=== PATIENT | female | born 1995 ===

== ENCOUNTER 2018-05-29 01:02 | Inpatient (IN) | payer OTHER ==
--- NOTE | 2018-05-29 01:18 | ED PDOC ---
Arrival/HPI - General Chief Complaint: Medical Clearance Time Seen by Provider: 05/29/18 01:10 Historian: Patient, EMS - History of Present Illness Narrative History of Present Illness (Text): 05/29/18 01:15 22 year old female, whose past medical history includes depression, presents to the emergency department transferred from [facility] for psychiatric admission. Patient informs of some suicidal ideation. Patient currently states she feels fine. Patient denies any somatic complaints. Patient denies any fevers, chills, headache, dizziness, chest pain, shortness of breath, cough, diaphoresis, abdominal pain, nausea, vomiting, diarrhea, back pain, neck pain, or any other complaint. Time/Duration: Prior to Arrival Symptom Onset: Gradual Symptom Course: Unchanged Activities at Onset: Light Past Medical History - Provider Review Nursing Documentation Reviewed: Yes - Infectious Disease Hx of Infectious Diseases: None - Cardiac Hx Cardiac Disorders: No - Pulmonary Hx Respiratory Disorders: No - Neurological Hx Neurological Disorder: No - HEENT Hx HEENT Disorder: No - Renal Hx Renal Disorder: No - Endocrine/Metabolic Hx Endocrine Disorders: No - Hematological/Oncological Hx Blood Disorders: No - Integumentary Hx Dermatological Disorder: No - Musculoskeletal/Rheumatological Hx Musculoskeletal Disorders: No - Gastrointestinal Hx Gastrointestinal Disorders: No - Genitourinary/Gynecological Hx Genitourinary Disorders: No - Psychiatric Hx Psychophysiologic Disorder: Yes Hx Depression: Yes Hx Substance Use: No - Surgical History Hx Gastric Bypass Surgery: Yes (gastric sleeve) - Anesthesia Hx Anesthesia: Yes Hx Anesthesia Reactions: No Hx Malignant Hyperthermia: No Family/Social History - Physician Review Nursing Documentation Reviewed: Yes Family/Social History: No Known Family HX Smoking Status: Never Smoked Hx Alcohol Use: Yes Frequency of alcohol use: Socially Hx Substance Use: No Allergies/Home Meds Allergies/Adverse Reactions: Allergies No Known Allergies Allergy (Verified 05/29/18 02:48) Home Medications: Home Meds Medication Instructions Recorded Confirmed No Known Home Med 05/29/18 05/29/18 Review of Systems - Physician Review All systems were reviewed & negative as marked: Yes - Review of Systems Constitutional: absent: Fevers, Night Sweats Respiratory: absent: SOB, Cough Cardiovascular: absent: Chest Pain Gastrointestinal: absent: Abdominal Pain, Diarrhea, Nausea, Vomiting Musculoskeletal: absent: Back Pain, Neck Pain Neurological: absent: Headache, Dizziness Endocrine: absent: Diaphoresis Psychiatric: Depression, Suicidal Ideation Physical Exam Vital Signs Reviewed: Yes Vital Signs Temp Pulse Resp BP Pulse Ox 05/29/18 01:08 98.0 F 69 18 129/70 98 Temperature: Afebrile Blood Pressure: Normal Pulse: Regular Respiratory Rate: Normal Appearance: Positive for: Well-Appearing, Non-Toxic, Comfortable Pain Distress: None Mental Status: Positive for: Alert and Oriented X 3 - Systems Exam Head: Present: Atraumatic, Normocephalic Pupils: Present: PERRL Extroacular Muscles: Present: EOMI Conjunctiva: Present: Normal Mouth: Present: Moist Mucous Membranes Neck: Present: Normal Range of Motion Respiratory/Chest: Present: Clear to Auscultation, Good Air Exchange. No: Respiratory Distress, Accessory Muscle Use Cardiovascular: Present: Regular Rate and Rhythm, Normal S1, S2. No: Murmurs Abdomen: No: Tenderness, Distention, Peritoneal Signs Back: Present: Normal Inspection Upper Extremity: Present: Normal Inspection. No: Cyanosis, Edema Lower Extremity: Present: Normal Inspection. No: Edema Neurological: Present: GCS=15, CN II-XII Intact, Speech Normal Skin: Present: Warm, Dry, Normal Color. No: Rashes Psychiatric: Present: Alert, Oriented x 3, Normal Insight, Normal Concentration, Depressed Mood, Suicidal Ideation Medical Decision Making ED Course and Treatment: 05/29/18 01:20 Impression: 22 year old female presents with suicidal ideation. Plan: -- Admission order -- Reassess and disposition Prior Visits: Notes and results from previous visits were reviewed. Progress Notes: - Scribe Statement The provider has reviewed the documentation as recorded by the Uvaldo Acosta Provider Scribe Attestation: All medical record entries made by the Kerriibkevin were at my direction and personally dictated by me. I have reviewed the chart and agree that the record accurately reflects my personal performance of the history, physical exam, m edical decision making, and the department course for this patient. I have also personally directed, reviewed, and agree with the discharge instructions and disposition. Disposition/Present on Arrival - Present on Arrival Any Indicators Present on Arrival: No History of DVT/PE: No History of Uncontrolled Diabetes: No Urinary Catheter: No History of Decub. Ulcer: No History Surgical Site Infection Following: None - Disposition Have Diagnosis and Disposition been Completed?: Yes Diagnosis: MDD (major depressive disorder) Disposition: HOSPITALIZED Disposition Time: 01:11 Patient Problems: Current Active Problems Problem Status Onset MARIANA (generalized anxiety disorder) Acute MDD (major depressive disorder) Acute Panic disorder Acute Condition: STABLE
[2018-05-29] MEDS ORDERED: Alum-Mag Hydrox-Simethicone Susp (30 mL) PO PRN (02:27)
[2018-05-29] MEDS ORDERED: Magnesium Hydroxide Susp 30 ml UD PO PRN (02:27)
--- NOTE | 2018-05-29 03:30 | PCM.BM ---
<Krista Rios - Last Filed: 05/29/18 03:27> Treatment Plan Problems - Problems identified on initial assessmt Sucidial Ideation Date Initiated: 05/29/18 Time Initiated: 03:28 Assessment reference: NA Status: Active Hopelessness/Helplessness Date Initiated: 05/29/18 Time Initiated: 03:28 Assessment reference: NA Status: Active Anxiety Date Initiated: 05/29/18 Time Initiated: 03:29 Assessment reference: NA Status: Active Altered sleep pattern Date Initiated: 05/29/18 Time Initiated: 03:29 Assessment reference: NA Status: Active Ineffective Coping Date Initiated: 05/29/18 Time Initiated: 03:30 Assessment reference: NA Status: Active <Sharla Lugo - Last Filed: 05/29/18 14:56> - Diagnosis (1) MDD (major depressive disorder) Status: Acute Interventions: 05/29/18 14:56 Psychoeducation Psychopharmacology/adjustment of medications as needed/ monitoring possible side effects Evaluate pt on daily basis Compliance with medications and follow up appointments Suicide and homicide risk assessment and prevention Relapse prevention Reduction of symptoms Improve functional status Family involvement As outpatient: cognitive behavioral therapy (2) MARIANA (generalized anxiety disorder) Status: Acute Interventions: 05/29/18 14:56 Psychoeducation Psychopharmacology/adjustment of medications as needed/ monitoring possible side effects Evaluate pt on daily basis Discussion of importance of being compliant with medications and follow up appointments Suicide and homicide risk assessment and prevention, coping strategies, safety plan Reduction of symptoms Relaxation techniques and breathing exercises Improve functional status Family involvement Cognitive behavioral therapy as outpatient (3) Panic disorder Status: Acute Interventions: 05/29/18 14:57 Psychoeducation Psychopharmacology/adjustment of medications as needed/ monitoring possible side effects Evaluate pt on daily basis Discussion of importance of being compliant with medications and follow up appointments Suicide and homicide risk assessment and prevention, coping strategies, safety plan Reduction of symptoms Relaxation techniques and breathing exercises Improve functional status Family involvement Cognitive behavioral therapy as outpatient <Patty Gilliam - Last Filed: 05/30/18 15:06>
[2018-05-29 03:33] VITALS: O2SAT 100
[2018-05-29 08:19] LABS: GLUCOSE,FASTING 78 mg/dL (65-110); HDL CHOLESTEROL 58 mg/dL (29-60)
[2018-05-29 08:30] LABS: LDL CHOLESTEROL 55 mg/dL (0-129)
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
[2018-05-30 08:49] LABS: FREE T4 1.1 ng/dL (0.78-2.19)
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
--- NOTE | 2018-05-30 15:22 | CP.PCM.CON ---
<Valentin Calderon - Last Filed: 05/30/18 15:17> History of Present Illness - History of Present Illness History of Present Illness: Valentin Calderon, PGY1 Medicine Consult Note for Dr. Medina cc: acid reflux Patient is a 22 y/o F with PMHx newly diagnosed depression and gastric sleeve (1 year ago) who presented to the ED transferred from [facility] for suicidal ideation. Patient was admitted to psych department. During her course on the psych unit, patient had some gastric reflux which has occurred for her in the past. Medical team was consulted for evaluation. Patient was evaluated by medical team. She said that she had a gastric sleeve 1 year ago and lost about 120 pounds. Since then, she had complication of acid reflux. Patient said she would occasionally get symptoms 1-2 times a week. She occasionally takes omeprazole for her symptoms as needed. Her symptoms are worse after meals and at night. Denies headache, fever, chills, n/v/d, bowel/bladder changes. A full 12 point ROS was conducted and unremarkable except as stated above. PMHx: depression PSHx: gastric sleeve (1 year ago) Meds: see MAR Allergies: NKDA SocialHx: denies etoh, smoking, drug use. FamHx: non-contributory Review of Systems - Review of Systems All systems: reviewed and no additional remarkable complaints except (as per HPI) Past Patient History - Infectious Disease Hx of Infectious Diseases: None - Past Social History Smoking Status: Never Smoked - CARDIAC Hx Cardiac Disorders: No - PULMONARY Hx Respiratory Disorders: No - NEUROLOGICAL Hx Neurological Disorder: No - HEENT Hx HEENT Problems: No - RENAL Hx Chronic Kidney Disease: No - ENDOCRINE/METABOLIC Hx Endocrine Disorders: No - HEMATOLOGICAL/ONCOLOGICAL Hx Blood Disorders: No - INTEGUMENTARY Hx Dermatological Problems: No - MUSCULOSKELETAL/RHEUMATOLOGICAL Hx Musculoskeletal Disorders: No - GASTROINTESTINAL Hx Gastrointestinal Disorders: No - GENITOURINARY/GYNECOLOGICAL Hx Genitourinary Disorders: No - PSYCHIATRIC Hx Psychophysiologic Disorder: Yes Hx Depression: Yes Hx Substance Use: No - SURGICAL HISTORY Hx Gastric Bypass Surgery: Yes (gastric sleeve) - ANESTHESIA Hx Anesthesia: Yes Hx Anesthesia Reactions: No Hx Malignant Hyperthermia: No Meds Allergies/Adverse Reactions: Allergies Allergy/AdvReac Type Severity Reaction Status Date / Time No Known Allergies Allergy Verified 05/29/18 02:48 - Medications Medications: Current Medications Acetaminophen (Tylenol 325mg Tab) 650 mg PO Q6H PRN PRN Reason: Pain, Mild (1-3) Last Admin: 05/29/18 02:41 Dose: 650 mg Al Hydrox/Mg Hydrox/Simethicone (Maalox Plus 30 Ml) 30 ml PO DAILY PRN PRN Reason: Indigestion / Heartburn Famotidine (Pepcid) 40 mg PO HS ORI Fluoxetine HCl (Prozac) 20 mg PO DAILY ORI Hydroxyzine Pamoate (Vistaril) 25 mg PO Q8 PRN; Protocol PRN Reason: Anxiety Magnesium Hydroxide (Milk Of Magnesia) 30 ml PO DAILY PRN PRN Reason: Constipation Pantoprazole Sodium (Protonix Ec Tab) 40 mg PO 0600 ORI Zaleplon (Sonata) 5 mg PO HS PRN PRN Reason: Insomnia Last Admin: 05/29/18 21:35 Dose: 5 mg Physical Exam - Head Exam Head Exam: ATRAUMATIC, NORMAL INSPECTION, NORMOCEPHALIC - Eye Exam Eye Exam: EOMI Pupil Exam: NORMAL ACCOMODATION - ENT Exam ENT Exam: Mucous Membranes Moist - Respiratory Exam Respiratory Exam: Clear to Auscultation Bilateral, NORMAL BREATHING PATTERN. absent: Rales, Rhonchi, Wheezes, Stridor - Cardiovascular Exam Cardiovascular Exam: REGULAR RHYTHM - GI/Abdominal Exam GI & Abdominal Exam: Normal Bowel Sounds, Soft. absent: Tenderness - Extremities Exam Extremities exam: Positive for: normal inspection - Back Exam Back exam: NORMAL INSPECTION - Neurological Exam Neurological exam: Alert, CN II-XII Intact, Normal Gait, Oriented x3, Reflexes Normal - Psychiatric Exam Psychiatric exam: Depressed - Skin Skin Exam: Dry, Intact, Normal Color, Warm Results - Vital Signs Recent Vital Signs: Last Vital Signs Temp 98.2 F 05/30/18 07:00 Pulse 60 05/30/18 07:00 Resp 18 05/30/18 07:00 BP 95/52 L 05/30/18 07:00 Pulse Ox 100 05/29/18 01:45 - Labs Labs: Laboratory Results - last 24 hr 05/29/18 05/30/18 07:55 07:30 Free T4 1.10 TSH 3rd Generation 0.43 L RPR Nonreactive Assessment & Plan - Assessment and Plan (Free Text) Assessment: Patient is a 22 y/o F with PMHx newly diagnosed depression and gastric sleeve (1 year ago) who presented to the ED transferred from [facility] for suicidal ideation. Medical team consulted for acid reflux. Plan: GERD 2/2 Gastric Sleeve (1 year ago) - c/w pepcid at night - ordered protonix 40mg PO in AM daily - lifestyle modifications - educated patient - If symptoms do not improve with above management, patient may benefit from outpatient evaluation with PMD for referral to GI for possible endoscopy Depression - management as per psych Dispo: Upon reviewing all previous labs, vitals, and based on clinical history, patient is cleared from medical standpoint. Thank you for consult. Case was discussed and reviewed with Attending Physician, Dr. Medina. <Mima Medina - Last Filed: 05/30/18 18:51> Meds - Medications Medications: Current Medications Acetaminophen (Tylenol 325mg Tab) 650 mg PO Q6H PRN PRN Reason: Pain, Mild (1-3) Last Admin: 05/29/18 02:41 Dose: 650 mg Al Hydrox/Mg Hydrox/Simethicone (Maalox Plus 30 Ml) 30 ml PO DAILY PRN PRN Reason: Indigestion / Heartburn Famotidine (Pepcid) 40 mg PO HS ORI Fluoxetine HCl (Prozac) 20 mg PO DAILY ORI Hydroxyzine Pamoate (Vistaril) 25 mg PO Q8 PRN; Protocol PRN Reason: Anxiety Magnesium Hydroxide (Milk Of Magnesia) 30 ml PO DAILY PRN PRN Reason: Constipation Pantoprazole Sodium (Protonix Ec Tab) 40 mg PO 0600 ORI Zaleplon (Sonata) 5 mg PO HS PRN PRN Reason: Insomnia Last Admin: 05/29/18 21:35 Dose: 5 mg Results - Vital Signs Recent Vital Signs: Last Vital Signs Temp 98.2 F 05/30/18 07:00 Pulse 81 05/30/18 16:00 Resp 18 05/30/18 07:00 BP 109/74 05/30/18 16:00 Pulse Ox 100 05/29/18 01:45 - Labs Labs: Laboratory Results - last 24 hr 05/30/18 07:30 Free T4 1.10 TSH 3rd Generation 0.43 L Attending/Attestation - Attestation I have personally seen and examined this patient.: Yes I have fully participated in the care of the patient.: Yes I have reviewed all pertinent clinical information: Yes Notes (Text): 05/30/18 18:47 22 year old female with past medical history of gastric sleeve 1 year ago who is currently admitted to psychiatry unit for suicidal ideation. Medical consultation was requested for medical evaluation and complaint of acid reflux. Patient was counselled on GERD precautions and lifestyle/diet modifications. Can continue to protonix or pepcid for reflux symptoms. If persistent advised she should follow up with GI as outpatient. Further management for depression/SI as per psychiatrist. Please reconsult as needed. Mima Medina MD Hospitalist.
[2018-05-31] MEDS: Pantoprazole 40 mg EC Tab PO SCH (06:43)
[2018-05-31 07:13] VITALS: RESP 20
--- NOTE | 2018-05-31 14:39 | PCM.PYCHPN ---
Psychiatric Progress Note - Psychiatric Progress Note Patient seen today, length of contact: 30min Patient Chief Complaint: "I slept better.." Problems Identified/Issues Discussed: symptoms, meds adjustment, coping, discharge planning Medical Problems: See HPI Diagnostic Results: Lab Results 05/30/18 07:30: Free T4 1.10, TSH 3rd Generation 0.43 L 05/29/18 07:55: RPR Nonreactive 05/29/18 07:55: TSH 3rd Generation 0.63 05/29/18 07:55: Fasting Glucose 78, Triglycerides 76, Cholesterol 136, LDL Cholesterol Direct 55, HDL Cholesterol 58 Vital Signs Temp Pulse Resp BP Pulse Ox 05/30/18 07:00 98.2 F 60 18 95/52 L 05/29/18 16:00 94 H 112/76 05/29/18 07:00 97.9 F 73 18 105/70 05/29/18 01:45 98.1 F 60 18 116/78 100 05/29/18 01:08 98.0 F 69 18 129/70 98 DSM 5 Symptoms Update: Shortly patient is a 22-year old female but not known previous psychiatric history, patient was transferred from [facility] where she was brought in by her sister for evaluation and stabilization of depressive symptoms, possible suicidal ideation with a plan to overdose on medications as well as Herself with the cognitive. Patient requires further evaluation and stabilization and medication initiation and titration. Patient was seen today at the dining area, hygiene is improving, patient presented to be less tearful affect was more reactive. Patient reported that she had good night sleep and today she feels "much better", but denied thoughts of harming self or others. Patient reported that she tolerates medications well, reported that "my mind is not so overwhelmed,". Resolved and is compliant with her medications, started to attend groups, said/tearful affect, no agitation no aggression. So far patient tolerates medications well, no side effects observed or reported, aims 0, no EPS. Impression: Major depressive disorder, severe, no psychosis Rule out generalized anxiety disorder Rule out panic disorder Medication Change: Yes (Cymbalta increased, Prozac increased) Medical Record Reviewed: Yes Mental Status Examination - Cognitive Function Orientation: Person, Place, Situation, Time Memory: Intact Attention: Poor (Some improvement) Concentration: Poor (Some improvement) Association: WNL Fund of Knowledge: WNL - Mood Mood: Depressed ("I feel better"), Anxious ("I feel less anxious") - Affect Affect: Constricted (But more reactive and mood-congruent), Flat - Speech Speech: Appropriate - Formal Thought Process Formal Thought Process: No Impairment - Suicidal Ideation Suicidal Ideation: No - Homicidal Ideation Homicidal Ideation: No Goal/Treatment Plan - Goal/Treatment Plan Need for Continued Stay: Remain at risks for inpatient hospitalization, Severe depression anxiety, Discharge may exacerbated symptoms, Severe functional impairment Progress Toward Problem(s) and Goals/Treatment Plan: Milieu/structure/supportive therapy SW consultation for discharge plan and social issues Med management: Prozac 20 mg daily for depression and anxiety Sonata 10 mg at the nighttime for insomnia Vistaril 25 mg 3 times a day as needed for anxiety Family involvement Follow up on labs Will monitor closely Pt was educated about risk/benefits and alternatives of medications, coping strategies (safety plan, suicide prevention), relapse prevention, importance of follow up with psychiatrist and therapist, stay away from drugs/alcohol/smoking Estimated Date of D/C: 06/01/18
[2018-06-01] MEDS: Pantoprazole 40 mg EC Tab PO SCH (06:13)
[2018-06-01 07:03] VITALS: BP 122/98; PULSE 79; TEMP 98.1
--- NOTE | 2018-06-01 14:05 | PCM.PYCHDC ---
Mental Status Examination - Mental Status Examination Orientation: Person, Place, Situation, Time Memory: Intact Mood: Neutral Affect: Broad (And mood congruent) Speech: Appropriate Attention: WNL Concentration: WNL Association: WNL Fund of Knowledge: WNL Formal Thought Process: No Impairment Description of patient's judgement and insight: Pt has improved insight into mental and medical illness "I thought I could deal with my problems alone, but I realize now that help is available...", pt was compliant with medications and unit rules and regulations, pt was attending therapy groups, was calm, cooperative, socially appropriate, no behavioral incidents, no agitation, no aggression. Psychotic Thoughts and Behaviors: Pt denied v/a/t hallucinations, denied paranoid ideation, pt does not appear to be psychotic, and thought process is goal directed. Suicidal Ideation: No Current Homicidal Ideation?: No Plan: pt adamantly denied thoughts of harming self or others denied intent or plan. Discharge Summary - Discharge Note Reason for Hospitalization: Patient was transferred from [facility] for evaluation and stabilization of depressive symptoms, possible suicidal ideation with a plan to overdose on medications as well as cut herself with box puller. Psychiatric History (includes Medical, Family, Personal Hx): See HPI Laboratory Data: Lab Results 05/30/18 07:30: Free T4 1.10, TSH 3rd Generation 0.43 L 05/29/18 07:55: RPR Nonreactive 05/29/18 07:55: TSH 3rd Generation 0.63 05/29/18 07:55: Fasting Glucose 78, Triglycerides 76, Cholesterol 136, LDL Cholesterol Direct 55, HDL Cholesterol 58 Vital Signs Temp Pulse Resp BP Pulse Ox 06/01/18 07:03 98.1 F 79 20 122/98 H 05/31/18 16:00 76 111/73 05/31/18 07:08 98.4 F 71 20 98/61 L 05/30/18 16:00 81 109/74 05/30/18 07:00 98.2 F 60 18 95/52 L 05/29/18 16:00 94 H 112/76 05/29/18 07:00 97.9 F 73 18 105/70 05/29/18 01:45 98.1 F 60 18 116/78 100 05/29/18 01:08 98.0 F 69 18 129/70 98 Consultations:: List each consultation separately and include: 1. Reason for request. 2. Findings. 3. Follow-up Consultations: Medical consult for GERD appreciated, please see medical notes for more detailed information. Summary of Hospital Course include:: 1. Description of specific treatment plan utilized for patients during their course of treatmen. 2. Summarize the time- course for resolution of acute symptoms and/or regressed behaviors. 3. Describe issues identified and worked on during hospitalization. 4. Describe medication utilized. 5. Describe medical problems identified and treated. 6. Reassessment of suicide risk Summary of Hospital Course: Shortly patient is a 22-year old female but not known previous psychiatric history, patient was transferred from [facility] where she was brought in by her sister for evaluation and stabilization of depressive symptoms, possible suicidal ideation with a plan to overdose on medications as well as Herself with the cognitive. Patient requires further evaluation and stabilization and medication initiation and titration. Please see admission note for more detailed information. Labs from [facility] reviewed Urine drug screen is negative for any substances Chest x-ray no acute abnormalities Patient was stabilized on the following medications, which slowly titrated to the following doses: Prozac 20 mg daily for depression and anxiety Sonata 5 mg at the nighttime for insomnia Patient also was on Pepcid and Protonix for GERD This credit underwriter initiated Vistaril as needed for anxiety, but patient anxiety subsided and patient did not require any Vistaril over this admission. Over the course of this hospitalization pt was attending groups, pt also had medication management, had therapeutic milieu. Overall pt improved significantly, patient depression slowly improved, anxiety was under control, patient sleep improved, patient was attending groups, was socially appropriate, was actively involved in to her treatment plan. Patient reached maximum effect from this acute psychiatric inpatient stabilization, patient deemed ready for discharge for outpatient program. At the time of the discharge patient pose no imminent danger to self or others, will be following up at [facility] on June 12, 2018, information about follow up appointment, time and address provided to the pt, (see SW note for more detailed information). It is a patient responsibility to follow up with outpatient clinic, PMD as well as specialists. In case patient will need to obtain results of studies pending at discharge, patient was provided with contact information of Psychiatric Inpatient unit [phone] as well as Medical Record Department [phone], as well as [facility] team [phone]. Denied smoking Denied using drugs Patient was drinking more often recently but patient does not have addiction to alcohol, did not have any withdrawal symptoms. pt was provided with prescriptions (see medication reconciliation form) Pt was educated about safety plan in case of worsening of symptoms or in case of suicidal or homicidal ideation call 911 or go to the nearest ER, also was educated to take meds as prescribed and stay away from drugs, pt verbalized understanding. Lab Results 05/29/18 07:55: TSH 3rd Generation 0.63 05/29/18 07:55: Fasting Glucose 78, Triglycerides 76, Cholesterol 136, LDL Cholesterol Direct 55, HDL Cholesterol 58 Vital Signs Temp Pulse Resp BP Pulse Ox 05/29/18 07:00 97.9 F 73 18 105/70 05/29/18 01:45 98.1 F 60 18 116/78 100 05/29/18 01:08 98.0 F 69 18 129/70 98 - Diagnosis (1) MDD (major depressive disorder) Current Visit: Yes Status: Acute Priority: High (2) MARIANA (generalized anxiety disorder) Current Visit: Yes Status: Acute Priority: High (3) Panic disorder Current Visit: Yes Status: Acute Priority: High - Final Diagnosis (DSM 5) Condition upon Discharge: GOOD Disposition: HOME/ ROUTINE Follow-up Treatment Plan: will be following up at [facility] on June 12, 2018, information about follow up appointment, time and address provided to the pt, (see SW note for more detailed information). It is a patient responsibility to follow up with outpatient clinic, PMD as well as specialists. Prescriptions/Medication Reconciliation: Famotidine [Pepcid] 40 mg PO HS #7 tab FLUoxetine [Fluoxetine HCl] 20 mg PO DAILY #14 cap Pantoprazole [Protonix EC Tab] 40 mg PO 0600 #7 ect Zaleplon [Sonata] 5 mg PO HS PRN #14 cap PRN Reason: Insomnia - Smoking Cessation Smoking Cessation Medication prescribed: No Reason for not providing: Patient denied smoking - Antipsychotic Medications Pt discharged on 2 or more routine antipsychotic medications: No
== END 2018-06-01 16:25 | disposition home or self-care (01) | DRG 751 ==
LOC: ED 01:02 → ERH 01:11 → PSYC 01:49
PROVIDERS: ADMIT Psychiatry & Neurology Psychiatry; ATTEND Psychiatry & Neurology Psychiatry
DX: F32.2 Major depressive disorder, single episode, severe without psychotic features (principal); F41.0 Panic disorder [episodic paroxysmal anxiety]; F41.1 Generalized anxiety disorder; K21.9 Gastro-esophageal reflux disease without esophagitis; Z98.84 Bariatric surgery status